=== PATIENT | female | born 1985 | race Caucasian/White ===

== ENCOUNTER 2016-10-26 10:53 | Emergency (ER) | payer OTHER ==
--- NOTE | 2016-10-26 11:48 | REP ---
Clinical: Chest pain . Comparison: None . Technique: PA and lateral. Findings: The mediastinum and cardiac silhouette are normal. The lung moran are clear and without acute consolidation, effusion, or pneumothorax. The skeletal structures are intact and normal. Impression: 1. No acute cardiopulmonary process. Signed by Jayy Leblanc MD 10/26/2016 11:39 A
[2016-10-26 12:59] LABS: BASO # 0.1 K/mm3 (0.0-0.2); BASO % 1.2 % (0.0-1.0); EOS # 0.1 K/mm3 (0.0-0.50); EOS % 1.7 % (0.0-3.0); LARGE UNSTAINED CELL # 0.1 K/mm3 (0.0-0.4); LARGE UNSTAINED CELL % 2.1 % (0.0-4.0); LYMPH # 2.4 K/mm3 (1.5-4.5); LYMPH % 34.6 % (24.0-44.0); MEAN CORPUSCULAR HEMOGLOBIN 31.4 pg (27.0-33.0); MEAN CORPUSCULAR HGB CONC 34.7 g/dl (32.0-36.5); MEAN CORPUSCULAR VOLUME 90.4 fl (80.0-96.0); MONO # 0.4 K/mm3 (0.0-0.8); MONO % 5.4 % (0.0-5.0); NEUTROPHILS # 3.6 K/mm3 (1.8-7.7); NEUTROPHILS % 54.9 % (36.0-66.0); PLATELET COUNT, AUTOMATED 239 k/mm3 (150-450); RED CELL DISTRIBUTION WIDTH 12.3 % (11.5-14.5); WHITE BLOOD COUNT 6.6 K/mm3 (4.0-10.0)
[2016-10-26 13:00] LABS: ABG BASE EXCESS 0.8 (-2.0-2.0); ABG DEVICE NASAL CANN; ABG HCO3 22.9 MEQ/L (22.0-26.0); ABG PARTIAL PRESSURE CO2 29.6 mmHg (35.0-45.0); ABG PARTIAL PRESSURE O2 122.9 mmHg (75.0-100.0); ABG STANDARD HCO3 25.2 MEQ/L (22.0-26.0); ABG TOTAL CO2 23.8 MEQ/L (22.0-29.0); ABG pH (ARTERIAL) 7.506 UNITS (7.350-7.450)
[2016-10-26 13:14] LABS: INR 1.12
[2016-10-26 13:25] LABS: ANION GAP 5 MEQ/L (8-16); BLOOD UREA NITROGEN 8 MG/DL (7-18); CALCIUM LEVEL 9.1 MG/DL (8.5-10.1); CARBON DIOXIDE LEVEL 29 MEQ/L (21-32); CHLORIDE LEVEL 108 MEQ/L (98-107); CREATININE FOR GFR 0.73 MG/DL (0.55-1.02); GLOMERULAR FILTRATION RATE > 60.0 (>60); GLUCOSE, FASTING 90 MG/DL (70-105); SODIUM LEVEL 142 MEQ/L (136-145)
[2016-10-26 13:53] LABS: CONTROL LINE HCG INT CTR LINE PRESENT
[2016-10-26] MEDS ORDERED: ISOVUE-370 76% 100ML VIAL (Q9967) As Ordered ONE (14:03)
--- NOTE | 2016-10-26 14:27 | REP ---
Clinical: Acute chest pain. Technique: Axial contrast enhanced images from the thoracic inlet to the upper abdomen using 100 ml Isovue 370 intravenous contrast material with coronal and sagittal re-formations. Findings: Satisfactory enhancement of the pulmonary vasculature is achieved and no filling defects are identified to suggest pulmonary embolus. Thoracic aorta is normal caliber without aneurysm or dissection. Heart and pericardium are normal. Bilateral lung moran are well aerated and clear without acute pulmonary parenchymal consolidation or atelectasis. No nodule or mass lesion. No pleural effusion/reaction. No pneumothorax. No adenopathy. Impression: No evidence for pulmonary embolus. No acute pleuroparenchymal or mediastinal process. Signed by Jayy Leblanc MD 10/26/2016 02:17 P
[2016-10-26] MEDS ORDERED: KETOROLAC 30 MG/ML VIAL (J1885) As Ordered ONE (14:46)
--- NOTE | 2016-10-26 15:06 | EDDOCDS ---
Physician Documentation [facility] Name: Susanne Weathers Age: 31 yrs Sex: Female : 1985 Arrival Date: 10/26/2016 Time: 10:53 Bed 11 Private MD: Stephan - Complete Info On Cds Disposition: 10/26/16 14:37 Discharged to Home/Self Care. Impression: Strain of muscle and tendon of front wall of thorax. - Condition is Stable. - Prescriptions for ketorolac 10 mg Oral Tablet - take 1 tablet by ORAL route 3 times per day As needed MDD- 30mg. Up to 5 days total use.; 15 tablet. - Medication Reconciliation, Local Pharmacy Hours form. - Follow up: Private Physician; When: Call to arrange an appointment; Reason: Recheck today's complaints. - Problem is new. - Symptoms have improved. Historical: - Allergies: no known allergies; - Home Meds: 1. none - PMHx: none; - PSHx: D & C; - Social history: Smoking status: Patient states former smoker of tobacco. No barriers to communication noted, The patient speaks fluent Malay, Speaks appropriately for age. - Family history: Not pertinent. - : The pt / caregiver states he / she is not on anticoagulants. Home medication list is obtained from the patient. - Exposure Risk Screening:: None identified. 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 7 in. (170.18 cm) (R); Pain 5/10; 11:13 BP 113 / 72 (auto/); kc3 11:13 Pulse 70 MON; Pulse Ox 97% ; kc3 11:43 BP 107 / 71 (auto/); kc3 11:43 Pulse 64 MON; Pulse Ox 98% ; kc3 12:12 Pulse 62 MON; Pulse Ox 98% ; kc3 12:13 BP 103 / 74 (auto/); kc3 12:37 BP 104 / 66 (auto/); kc3 12:39 Pulse 62 MON; Pulse Ox 99% ; kc3 13:06 Pulse 60 MON; Pulse Ox 98% ; kc3 13:07 BP 108 / 70 (auto/); kc3 13:37 BP 103 / 63 (auto/); kc3 13:37 Pulse 68 MON; Resp 18; Temp 97.4(O); Pulse Ox 98% on R/A; Pain 2/10; kc3 15:03 BP 105 / 70; Pulse 60; Resp 18; Temp 97.6(O); Pulse Ox 99% on R/A; kc3 15:03 Pain 1/10; kc3 10:56 Body Mass Index 28.19 (81.65 kg, 170.18 cm) gr2 MDM: 10:59 ECG WITH READING ER PHYS+CARDIAG ordered. EDMS 11:08 Test Engineer Nuclear Equipment/Pulse Ox/q 30 min VS ordered. br1 11:09 Chest, 2 View (pa\E\lat) Ordered. EDMS 12:40 Call Respiratory ordered. cs11 12:41 -Arterial Blood Gas Ordered. EDMS 12:41 CBC with Diff Ordered. EDMS 12:41 MED Profile Ordered. EDMS 12:41 Cardiac Marker Panel Ordered. EDMS 12:41 Pt & Aptt Ordered. EDMS 12:42 Call Respiratory complete. jlf 12:47 Financial registration complete. mm15 12:51 [facility] Payment Agreement was scanned into [employer] and attached to record. mm15 13:35 -Arterial Blood Gas Reviewed. cs11 13:35 CBC with Diff Reviewed. cs11 13:35 MED Profile Reviewed. cs11 13:35 Cardiac Marker Panel Reviewed. cs11 13:35 Pt & Aptt Reviewed. cs11 13:35 Chest, 2 View (pa\E\lat) Reviewed. cs11 13:41 HCG,Serum Qualitative Ordered. EDMS 13:41 CT Chest Angio R/O PE Ordered. EDMS 14:40 ketorolac 30 mg IVP once ordered. cs11 Administered Medications: 14:49 Drug: ketorolac 30 mg [ketorolac 30 mg/mL (1 mL) injection solution (1 mL)] Route: IVP; kc3 Site: left antecubital; 15:03 Follow up: Pain 10/27 Adult kc3 Signatures: Dispatcher [employer] EDMS Magdaleno Whitehead MD MD br1 Alan Sidhu DO DO cs11 [employer] mm15 Deanna Ferrari, INDUSTRIAL MAINTENANCE TECHNICIAN INDUSTRIAL MAINTENANCE TECHNICIAN jlf Codi Castañeda,RN RN Tonie Duke,RN RN kc3 The chart was reviewed and I authenticate all verbal orders and agree with the evaluation and treatment provided.Attachments: 12:51 [facility] Payment Agreement mm15 MTDD
--- NOTE | 2016-10-26 15:06 | EDDOCDS ---
Nurse's Notes [facility] Name: Susanne Weathers Age: 31 yrs Sex: Female : 1985 Arrival Date: 10/26/2016 Time: 10:53 Bed 11 Private MD: Other - Complete Info On Cds Diagnosis: Strain of muscle and tendon of front wall of thorax Presentation: 10/26 10:59 Presenting complaint: Patient states: woke up yesterday morning with chest pain. denies ead sob. reports intermittent dizziness. denies n/v. reports chest pain is constant. Aspirin was not taken prior to arrival. Adult Sepsis Screening: The patient does not have new or worsening altered mentation. Patient's respiratory rate is less than 22. Systolic blood pressure is greater than 100. Patient has a qSOFA score of 0- Negative Sepsis Screen. Suicide/Homicide risk assessment- the patient denies having any suicidal and/or homicidal ideations and does not present with any other emotional, behavioral or mental health complaints. Status: The patient is a dependent. Transition of care: patient was not received from another setting of care. 10:59 Acuity: MORENO Level 3 ead 10:59 Method Of Arrival: Walkin/Carried/Asstd ead Triage Assessment: 11:00 General: Appears in no apparent distress, comfortable, Behavior is appropriate for age, ead cooperative. Pain: Location: chest Pain currently is 2 out of 10 on a pain scale. At worst was 6 out of 10 on a pain scale. Neurological: Level of Consciousness is awake, alert, Oriented to person, place, time, Reports dizziness. Cardiovascular: Chest pain is described as mild, radiates Does not radiate. episodes are continuous began yesterday morning. Respiratory: Airway is patent Respiratory effort is even, unlabored, Denies shortness of breath. GI: Denies nausea, vomiting. Derm: Skin is pink, warm & dry. 11:03 Pt Declines HIV testing. 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 none - PMHx: none; - PSHx: D & C; - Social history: Smoking status: Patient states former smoker of tobacco. No barriers to communication noted, The patient speaks fluent Uruguayan, Speaks appropriately for age. - Family history: Not pertinent. - : The pt / caregiver states he / she is not on anticoagulants. Home medication list is obtained from the patient. - Exposure Risk Screening:: None identified. Screenin:15 Screening information is obtained from the patient. Fall risk: No risks identified. kc3 Assistance ADL's: requires no assistance with activities of daily living. Abuse/DV Screen: The patient / caregiver reports he/she is: not in a situation that causes fear, pain or injury. Nutritional screening: No deficits noted. Advance Directives: Currently, there is no health care proxy. home support is adequate. Assessment: 11:13 General: Appears in no apparent distress, comfortable, Behavior is appropriate for age, kc3 cooperative. Pain: Location: chest Pain currently is 4 out of 10 on a pain scale. Neurological: Level of Consciousness is awake, alert, obeys commands, Oriented to person, place, time. Cardiovascular: Rhythm is sinus rhythm Chest pain is described as Pain is 4 out of 10 on a pain scale. quality is squeezing, is located in right radiates Does not radiate. began yesterday morning. Respiratory: Respiratory effort is even, unlabored, Respiratory pattern is regular, symmetrical, Denies shortness of breath. GI: Denies nausea, vomiting. Derm: Skin is pink, warm & dry. Musculoskeletal: Circulation, motion, and sensation intact. 11:42 General: Appears in no apparent distress, comfortable, Behavior is appropriate for age, kc3 cooperative. Pain: Location: chest Pain currently is 4 out of 10 on a pain scale. Neurological: Level of Consciousness is awake, alert, obeys commands, Oriented to person, place, time. Cardiovascular: Rhythm is sinus rhythm. Respiratory: Respiratory effort is even, unlabored, Respiratory pattern is regular, symmetrical. Derm: Skin is pink, warm & dry. 12:35 General: Appears in no apparent distress, comfortable, Behavior is appropriate for age, kc3 cooperative. Pain: Location: chest. Neurological: Level of Consciousness is awake, alert, obeys commands, Oriented to person, place, time. Cardiovascular: Rhythm is sinus rhythm. Respiratory: Respiratory effort is even, unlabored. Derm: Skin is pink, warm & dry. Musculoskeletal: Circulation, motion, and sensation intact. 12:59 Adult Sepsis Screening: The patient does not have new or worsening altered mentation. kc3 Patient's respiratory rate is less than 22. Systolic blood pressure is greater than 100. Patient has a qSOFA score of 0- Negative Sepsis Screen. 13:49 General: Appears in no apparent distress, comfortable, Behavior is appropriate for age, kc3 cooperative. Pain: Location: chest. Neurological: Level of Consciousness is awake, alert, obeys commands. Cardiovascular: Rhythm is sinus rhythm. Respiratory: Respiratory effort is even, unlabored. Derm: Skin is pink, warm & dry. 14:30 General: Appears in no apparent distress, comfortable, Behavior is appropriate for age, kc3 cooperative. Pain: Location: chest. Neurological: Level of Consciousness is awake, alert, obeys commands, Oriented to person, place, time. Cardiovascular: Rhythm is sinus rhythm. Respiratory: Respiratory effort is even, unlabored. Derm: Skin is pink, warm & dry. Musculoskeletal: Circulation, motion, and sensation intact. 15:02 General: Appears in no apparent distress, comfortable, Behavior is appropriate for age, kc3 cooperative. Pain: Location: chest. Neurological: Level of Consciousness is awake, alert, obeys commands, Oriented to person, place, time. Cardiovascular: Rhythm is sinus rhythm. Respiratory: Respiratory effort is even, unlabored. Derm: Skin is pink, warm & dry. Musculoskeletal: Circulation, motion, and sensation intact. Vital Signs: 10:56 BP 126 / 76; Pulse 76; Resp 18 S; Temp 96.9(O); Pulse Ox 98% on R/A; Weight 81.65 kg gr2 (R); Height 5 ft. 7 in. (170.18 cm) (R); Pain 5/10; 11:13 BP 113 / 72 (auto/); kc3 11:13 Pulse 70 MON; Pulse Ox 97% ; kc3 11:43 BP 107 / 71 (auto/); kc3 11:43 Pulse 64 MON; Pulse Ox 98% ; kc3 12:12 Pulse 62 MON; Pulse Ox 98% ; kc3 12:13 BP 103 / 74 (auto/); kc3 12:37 BP 104 / 66 (auto/); kc3 12:39 Pulse 62 MON; Pulse Ox 99% ; kc3 13:06 Pulse 60 MON; Pulse Ox 98% ; kc3 13:07 BP 108 / 70 (auto/); kc3 13:37 BP 103 / 63 (auto/); kc3 13:37 Pulse 68 MON; Resp 18; Temp 97.4(O); Pulse Ox 98% on R/A; Pain 2/10; kc3 15:03 BP 105 / 70; Pulse 60; Resp 18; Temp 97.6(O); Pulse Ox 99% on R/A; kc3 15:03 Pain 1/10; kc3 10:56 Body Mass Index 28.19 (81.65 kg, 170.18 cm) gr2 Vitals: 10:56 Log In Time: October 26, 2016 at 10:56. RN notified that patient meets Red Flag gr2 criteria. ED Course: 10:54 Patient visited by Robson Richmond. gr2 10:54 Patient moved to Waiting gr2 10:55 Other - Complete Info On Cds is Private Physician. gr2 10:57 Patient visited by Robson Richmond. gr2 10:57 Patient moved to Pre RCE gr2 10:58 Patient moved to PR2 / 26 ead 11:00 Triage Initiated ead 11:04 Patient visited by Lizett Lima. dem1 11:04 EKG done. (by ED staff). Reviewed by Magdaleno Whitehead MD. dem1 11:07 Tonie Cantu,RN is Primary Nurse. ead 11:07 Patient moved to 11 ead 11:14 Accompanied by Family Member, Patient has correct armband on for positive ct3 identification. Placed in gown. Bed in low position. Call light in reach. Side rails up X2. hospital monitor on. Pulse ox on. NIBP on. 11:15 Patient visited by Tonie Cantu RN. kc3 11:15 The patient / caregiver is instructed regarding the plan of care and ED course. kc3 11:44 Patient visited by Tonie Cantu RN. kc3 11:49 Chest, 2 View (pa\E\lat) Returned. EDMS 12:15 Alan Sidhu DO is Attending Physician. cs11 12:15 Patient visited by Alan Sidhu DO. cs11 12:51 [facility] Payment Agreement was scanned into [employer] and attached to record. mm15 12:52 Pt & Aptt Sent. jjr 12:52 Cardiac Marker Panel Sent. jjr 12:52 MED Profile Sent. jjr 12:52 CBC with Diff Sent. jjr 12:52 Inserted saline lock: 20 gauge in left antecubital area and blood collected. Labs jjr drawn. (by ED staff). Sent per order to lab. 12:56 -Arterial Blood Gas Sent. js11 13:03 Patient visited by Deanna Ferrari PCA. jlf 13:29 Patient name changed from Susanne\S\[place]\S\ to Susanne\S\[place]loria\S\[place]. EDMS 13:44 HCG,Serum Qualitative Sent. kc3 13:50 Patient visited by Tonie Cantu,RN. kc3 14:17 Patient visited by Tonie Cantu,FARIHA. kc3 14:33 CT Chest Angio R/O PE Returned. EDMS 15:03 Discontinued IV lock intact, bleeding controlled, pressure dressing applied, No kc3 redness/swelling at site. No procedures done that require assistance. Administered Medications: 14:49 Drug: ketorolac 30 mg [ketorolac 30 mg/mL (1 mL) injection solution (1 mL)] Route: IVP; kc3 Site: left antecubital; 15:03 Follow up: Pain 10/27 Adult kc3 RT: 12:56 ABG's drawn from left radial artery allens test done and positive pressure held for 5 js11 minutes no bleeding noted specimen sent pt. tolerated well. Order Results: Lab Order: -Arterial Blood Gas; SPEC'M 10/26/16 12:49 Test: ABG pH (ARTERIAL); Value: 7.506; Range: 7.350-7.450; Abnormal: Above high normal; Units: UNITS; Status: F Test: ABG PARTIAL PRESSURE CO2; Value: 29.6; Range: 35.0-45.0; Abnormal: Below low normal; Units: mmHg; Status: F Test: ABG PARTIAL PRESSURE O2; Value: 122.9; Range: 75.0-100.0; Abnormal: Above high normal; Units: mmHg; Status: F Test: ABG TOTAL CO2; Value: 23.8; Range: 22.0-29.0; Units: MEQ/L; Status: F Test: ABG HCO3; Value: 22.9; Range: 22.0-26.0; Units: MEQ/L; Status: F Test: ABG BASE EXCESS; Value: 0.8; Range: -2.0-2.0; Status: F Test: ABG STANDARD HCO3; Value: 25.2; Range: 22.0-26.0; Units: MEQ/L; Status: F Test: ABG O2 SATURATION; Value: 98.9; Range: 95.0-99.0; Units: %; Status: F Test: ABG DEVICE; Value: NASAL EDOUARD; Status: F Lab Order: CBC with Diff; SPEC'M 10/26/16 12:50 Test: WHITE BLOOD COUNT; Value: 6.6; Range: 4.0-10.0; Units: K/mm3; Status: F Test: RED BLOOD COUNT; Value: 4.35; Range: 4.00-5.40; Units: M/mm3; Status: F Test: HEMOGLOBIN; Value: 13.7; Range: 12.0-16.0; Units: g/dl; Status: F Test: HEMATOCRIT; Value: 39.4; Range: 36.0-47.0; Units: %; Status: F Test: MEAN CORPUSCULAR VOLUME; Value: 90.4; Range: 80.0-96.0; Units: fl; Status: F Test: MEAN CORPUSCULAR HEMOGLOBIN; Value: 31.4; Range: 27.0-33.0; Units: pg; Status: F Test: MEAN CORPUSCULAR HGB CONC; Value: 34.7; Range: 32.0-36.5; Units: g/dl; Status: F Test: RED CELL DISTRIBUTION WIDTH; Value: 12.3; Range: 11.5-14.5; Units: %; Status: F Test: PLATELET COUNT, AUTOMATED; Value: 239; Range: 150-450; Units: k/mm3; Status: F Test: NEUTROPHILS %; Value: 54.9; Range: 36.0-66.0; Units: %; Status: F Test: LYMPH %; Value: 34.6; Range: 24.0-44.0; Units: %; Status: F Test: MONO %; Value: 5.4; Range: 0.0-5.0; Abnormal: Above high normal; Units: %; Status: F Test: EOS %; Value: 1.7; Range: 0.0-3.0; Units: %; Status: F Test: BASO %; Value: 1.2; Range: 0.0-1.0; Abnormal: Above high normal; Units: %; Status: F Test: LARGE UNSTAINED CELL %; Value: 2.1; Range: 0.0-4.0; Units: %; Status: F Test: NEUTROPHILS #; Value: 3.6; Range: 1.8-7.7; Units: K/mm3; Status: F Test: LYMPH #; Value: 2.4; Range: 1.5-4.5; Units: K/mm3; Status: F Test: MONO #; Value: 0.4; Range: 0.0-0.8; Units: K/mm3; Status: F Test: EOS #; Value: 0.1; Range: 0.0-0.50; Units: K/mm3; Status: F Test: BASO #; Value: 0.1; Range: 0.0-0.2; Units: K/mm3; Status: F Test: LARGE UNSTAINED CELL #; Value: 0.1; Range: 0.0-0.4; Units: K/mm3; Status: F Lab Order: MED Profile; SPEC'M 10/26/16 12:50 Test: GLUCOSE, FASTING; Value: 90; Range: 70-105; Units: MG/DL; Status: F Test: BLOOD UREA NITROGEN; Value: 8; Range: 7-18; Units: MG/DL; Status: F Test: CREATININE FOR GFR; Value: 0.73; Range: 0.55-1.02; Units: MG/DL; Status: F Test: GLOMERULAR FILTRATION RATE; Value: > 60.0; Range: >60; Status: F Test: SODIUM LEVEL; Value: 142; Range: 136-145; Units: MEQ/L; Status: F Test: POTASSIUM SERUM; Value: 4.0; Range: 3.5-5.1; Units: MEQ/L; Status: F Test: CHLORIDE LEVEL; Value: 108; Range: 98-107; Abnormal: Above high normal; Units: MEQ/L; Status: F Test: CARBON DIOXIDE LEVEL; Value: 29; Range: 21-32; Units: MEQ/L; Status: F Test: ANION GAP; Value: 5; Range: 8-16; Abnormal: Below low normal; Units: MEQ/L; Status: F Test: CALCIUM LEVEL; Value: 9.1; Range: 8.5-10.1; Units: MG/DL; Status: F Test Note: ; Units are mL/min/1.73 m2 Chronic Kidney Disease Staging per NKF: Stage I & II GFR >=60 Normal to Mildly Decreased Stage III GFR 30-59 Moderately Decreased Stage IV GFR 15-29 Severely Decreased Stage V GFR <15 Very Little GFR Left ESRD GFR <15 on CONVENTION WORKER Lab Order: Cardiac Marker Panel; [facility]10/26/16 12:50 Test: CPK CREATINE PHOSPHOKINASE; Value: 37; Range: 26-192; Units: U/L; Status: F Test: CK-MB VALUE MASS; Value: 1.0; Range: 0.0-3.6; Units: NG/ML; Status: F Test: MB/CK RELATIVE INDEX; Value: 2.70; Range: < OR =4; Status: F Test: TROPONIN I; Value: < 0.02; Range: < 0.10; Units: NG/ML; Status: F Test Note: ; DIAGNOSIS CRITERIA MMB ng/ml Relative Index (RI) NON-AMI < or = 5 N/A ZELAYA ZONE > 5 < or = 4 AMI > 5 > 4 Lab Order: Pt & Aptt; 10/26/16 12:50 Test: PROTHROMBIN TIME; Value: 14.5; Range: 12.3-14.5; Units: SECONDS; Status: F Test: INR; Value: 1.12; Status: F Test: PARTIAL THROMBOPLASTIN TIME; Value: 32.2; Range: 26.6-37.1; Units: SECONDS; Status: F Test Note: ; THERAPUTIC HUMAN INR VALUES INDICATIONS NORMAL RANGES PROPHYLAXIS/TREATMENT OF: VENOUS THROMBOSIS 2.0-3.0 PULMONARY EMBOLISM 2.0-3.0 PREVENTION OF SYSTEMIC EMBOLISM FROM: TISSUE HEART VALVES 2.0-3.0 ACUTE MYOCARDIAL INFARCTION 2.0-3.0 VALVULAR HEART DISEASE 2.0-3.0 ATRIAL FIBRILLATION 2.0-3.0 MECHANICAL VALVES(HIGH RISK) 2.5-3.5 RECURRENT MYOCARDIAL INFARCTION 2.5-3.5 Lab Order: HCG,Serum Qualitative; 10/26/16 12:50 Test: HCG, SERUM QUALITATIVE; Value: NEGATIVE; Range: NEGATIVE; Status: F Radiology Order: Chest, 2 View (pa\E\lat) Test: Chest, 2 View (pa\E\lat) REASON FOR EXAMINATION: Chest Pain; Clinical: Chest pain .; ; Comparison: None .; ; Technique: PA and lateral.; ; Findings:; The mediastinum and cardiac silhouette are normal. The lung moran are clear and; without acute consolidation, effusion, or pneumothorax. The skeletal structures; are intact and normal.; ; Impression:; 1. No acute cardiopulmonary process.; ; ; Signed by; Jayy Leblanc MD 10/26/2016 11:39 A; Radiology Order: CT Chest Angio R/O PE Test: CT Chest Angio R/O PE REASON FOR EXAMINATION: A-a grad 12;Chest Pain; Clinical: Acute chest pain.; ; Technique: Axial contrast enhanced images from the thoracic inlet to the upper; abdomen using 100 ml Isovue 370 intravenous contrast material with coronal and; sagittal re-formations.; ; Findings: Satisfactory enhancement of the pulmonary vasculature is achieved and; no filling defects are identified to suggest pulmonary embolus. Thoracic aorta; is normal caliber without aneurysm or dissection. Heart and pericardium are; normal. Bilateral lung moran are well aerated and clear without acute pulmonary; parenchymal consolidation or atelectasis. No nodule or mass lesion. No pleural; effusion/reaction. No pneumothorax. No adenopathy.; ; Impression:; No evidence for pulmonary embolus.; No acute pleuroparenchymal or mediastinal process.; ; ; Signed by; Jayy Leblanc MD 10/26/2016 02:17 P; Outcome: 14:17 CT Study completed. kc3 14:37 Discharge ordered by Provider. cs11 15:04 Discharge Assessment: Patient awake, alert and oriented x 3. No cognitive and/or kc3 functional deficits noted. Patient verbalized understanding of disposition instructions. patient administered narcotics - no. The following High Risk Discharge criteria are identified: None. Condition: stable. Discharge instructions given to patient, Instructed on discharge instructions, follow up and referral plans. medication usage, Demonstrated understanding of instructions, medications, Pt was receptive of discharge instructions/ teaching. Prescriptions given X 1. Property :Personal belongings accompany Pt. 15:05 Patient left the ED. kc3 Signatures: Dispatcher [facility] Sabrina Arauz, RN RN Briana Meraz, DRAFTER DRAFTER ct3 Ángel Best js11 Lizett Lima dem1 Alan Sidhu, DO JUÁREZ cs11 Robson Richmond gr2 [employer] Crisostomo mm15 Vonda Roxannaronald, DRAFTER DRAFTER jlf Codi Castañeda RN RN ead Crane, Kelsi, RN RN kc3 Corrections: (The following items were deleted from the chart) 14:03 13:37 Pulse 68bpm; Monitor; Pulse Ox 98%; kc3 kc3 MTDD
--- NOTE | 2016-10-27 19:47 | ECGEPIP ---
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
--- NOTE | 2016-10-28 16:06 | EDDOCDS ---
Physician Documentation [facility] Name: Susanne Weathers Age: 31 yrs Sex: Female : 1985 Arrival Date: 10/26/2016 Time: 10:53 Bed 11 Private MD: Stephan - Complete Info On Cds Disposition: 10/26/16 14:37 Discharged to Home/Self Care. Impression: Strain of muscle and tendon of front wall of thorax. - Condition is Stable. - Prescriptions for ketorolac 10 mg Oral Tablet - take 1 tablet by ORAL route 3 times per day As needed MDD- 30mg. Up to 5 days total use.; 15 tablet. - Medication Reconciliation, Local Pharmacy Hours form. - Follow up: Private Physician; When: Call to arrange an appointment; Reason: Recheck today's complaints. - Problem is new. - Symptoms have improved. Historical: - Allergies: no known allergies; - Home Meds: 1. none - PMHx: none; - PSHx: D & C; - Social history: Smoking status: Patient states former smoker of tobacco. No barriers to communication noted, The patient speaks fluent Frisian, Speaks appropriately for age. - Family history: Not pertinent. - : The pt / caregiver states he / she is not on anticoagulants. Home medication list is obtained from the patient. - Exposure Risk Screening:: None identified. TAX ACCOUNTANT: 10/26 11:02 LMP 09/26/2016 ead Vital Signs: 10:56 BP 126 / 76; Pulse 76; Resp 18 S; Temp 96.9(O); Pulse Ox 98% on R/A; Weight 81.65 kg / gr2 180.01 lbs (R); Height 5 ft. 7 in. (170.18 cm) (R); Pain 5/10; 11:13 BP 113 / 72 (auto/); kc3 11:13 Pulse 70 MON; Pulse Ox 97% ; kc3 11:43 BP 107 / 71 (auto/); kc3 11:43 Pulse 64 MON; Pulse Ox 98% ; kc3 12:12 Pulse 62 MON; Pulse Ox 98% ; kc3 12:13 BP 103 / 74 (auto/); kc3 12:37 BP 104 / 66 (auto/); kc3 12:39 Pulse 62 MON; Pulse Ox 99% ; kc3 13:06 Pulse 60 MON; Pulse Ox 98% ; kc3 13:07 BP 108 / 70 (auto/); kc3 13:37 BP 103 / 63 (auto/); kc3 13:37 Pulse 68 MON; Resp 18; Temp 97.4(O); Pulse Ox 98% on R/A; Pain 2/10; kc3 15:03 BP 105 / 70; Pulse 60; Resp 18; Temp 97.6(O); Pulse Ox 99% on R/A; kc3 15:03 Pain 1/10; kc3 10:56 Body Mass Index 28.19 (81.65 kg, 170.18 cm) gr2 MDM: 10:59 ECG WITH READING ER PHYS+CARDIAG ordered. EDMS 11:08 Door Attendant/Pulse Ox/q 30 min VS ordered. br1 11:09 Chest, 2 View (pa\E\lat) Ordered. EDMS 12:40 Call Respiratory ordered. cs11 12:41 -Arterial Blood Gas Ordered. EDMS 12:41 CBC with Diff Ordered. EDMS 12:41 MED Profile Ordered. EDMS 12:41 Cardiac Marker Panel Ordered. EDMS 12:41 Pt & Aptt Ordered. EDMS 12:42 Call Respiratory complete. jlf 12:47 Financial registration complete. mm15 12:51 [facility] Payment Agreement was scanned into [employer] and attached to record. mm15 13:35 -Arterial Blood Gas Reviewed. cs11 13:35 CBC with Diff Reviewed. cs11 13:35 MED Profile Reviewed. cs11 13:35 Cardiac Marker Panel Reviewed. cs11 13:35 Pt & Aptt Reviewed. cs11 13:35 Chest, 2 View (pa\E\lat) Reviewed. cs11 13:41 HCG,Serum Qualitative Ordered. EDMS 13:41 CT Chest Angio R/O PE Ordered. EDMS 14:40 ketorolac 30 mg IVP once ordered. cs11 10/27 11:59 T-Sheet-- Draft Copy was scanned into [employer] and attached to record. gb 12:00 ECG/EKG was scanned into [employer] and attached to record. gb Administered Medications: 10/26 14:49 Drug: ketorolac 30 mg [ketorolac 30 mg/mL (1 mL) injection solution (1 mL)] Route: IVP; kc3 Site: left antecubital; 15:03 Follow up: Pain 10/27 Adult kc3 Signatures: Dispatcher [employer] EDMS April Portillo, Reg Reg gb Magdaleno Whitehead MD MD br1 Alan Sidhu DO DO cs11 [employer] mm15 Deanna Ferrari, HOSPICE EXECUTIVE DIRECTOR HOSPICE EXECUTIVE DIRECTOR jlf Codi Castañeda,RN RN ead Tonie Cantu RN RN kc3 The chart was reviewed and I authenticate all verbal orders and agree with the evaluation and treatment provided.Attachments: 12:51 [facility] [place] Payment Agreement mm15 10/27 11:59 T-Sheet-- Draft Copy gb 12:00 ECG/EKG gb Chart Complete MTDD
--- NOTE | 2016-10-28 16:06 | EDDOCDS ---
Physician Documentation [facility] Name: Susanne Weathers Age: 31 yrs Sex: Female : 1985 Arrival Date: 10/26/2016 Time: 10:53 Bed 11 Private MD: Stephan - Complete Info On Cds Disposition: 10/26/16 14:37 Discharged to Home/Self Care. Impression: Strain of muscle and tendon of front wall of thorax. - Condition is Stable. - Prescriptions for ketorolac 10 mg Oral Tablet - take 1 tablet by ORAL route 3 times per day As needed MDD- 30mg. Up to 5 days total use.; 15 tablet. - Medication Reconciliation, Local Pharmacy Hours form. - Follow up: Private Physician; When: Call to arrange an appointment; Reason: Recheck today's complaints. - Problem is new. - Symptoms have improved. Historical: - Allergies: no known allergies; - Home Meds: 1. none - PMHx: none; - PSHx: D & C; - Social history: Smoking status: Patient states former smoker of tobacco. No barriers to communication noted, The patient speaks fluent Nepali, Speaks appropriately for age. - Family history: Not pertinent. - : The pt / caregiver states he / she is not on anticoagulants. Home medication list is obtained from the patient. - Exposure Risk Screening:: None identified. IRRIGATOR GRAVITY FLOW: 10/26 11:02 LMP 09/26/2016 ead Vital Signs: 10:56 BP 126 / 76; Pulse 76; Resp 18 S; Temp 96.9(O); Pulse Ox 98% on R/A; Weight 81.65 kg / gr2 180.01 lbs (R); Height 5 ft. 7 in. (170.18 cm) (R); Pain 5/10; 11:13 BP 113 / 72 (auto/); kc3 11:13 Pulse 70 MON; Pulse Ox 97% ; kc3 11:43 BP 107 / 71 (auto/); kc3 11:43 Pulse 64 MON; Pulse Ox 98% ; kc3 12:12 Pulse 62 MON; Pulse Ox 98% ; kc3 12:13 BP 103 / 74 (auto/); kc3 12:37 BP 104 / 66 (auto/); kc3 12:39 Pulse 62 MON; Pulse Ox 99% ; kc3 13:06 Pulse 60 MON; Pulse Ox 98% ; kc3 13:07 BP 108 / 70 (auto/); kc3 13:37 BP 103 / 63 (auto/); kc3 13:37 Pulse 68 MON; Resp 18; Temp 97.4(O); Pulse Ox 98% on R/A; Pain 2/10; kc3 15:03 BP 105 / 70; Pulse 60; Resp 18; Temp 97.6(O); Pulse Ox 99% on R/A; kc3 15:03 Pain 1/10; kc3 10:56 Body Mass Index 28.19 (81.65 kg, 170.18 cm) gr2 MDM: 10:59 ECG WITH READING ER PHYS+CARDIAG ordered. EDMS 11:08 Spoon Maker/Pulse Ox/q 30 min VS ordered. br1 11:09 Chest, 2 View (pa\E\lat) Ordered. EDMS 12:40 Call Respiratory ordered. cs11 12:41 -Arterial Blood Gas Ordered. EDMS 12:41 CBC with Diff Ordered. EDMS 12:41 MED Profile Ordered. EDMS 12:41 Cardiac Marker Panel Ordered. EDMS 12:41 Pt & Aptt Ordered. EDMS 12:42 Call Respiratory complete. jlf 12:47 Financial registration complete. mm15 12:51 [facility] Payment Agreement was scanned into [employer] and attached to record. mm15 13:35 -Arterial Blood Gas Reviewed. cs11 13:35 CBC with Diff Reviewed. cs11 13:35 MED Profile Reviewed. cs11 13:35 Cardiac Marker Panel Reviewed. cs11 13:35 Pt & Aptt Reviewed. cs11 13:35 Chest, 2 View (pa\E\lat) Reviewed. cs11 13:41 HCG,Serum Qualitative Ordered. EDMS 13:41 CT Chest Angio R/O PE Ordered. EDMS 14:40 ketorolac 30 mg IVP once ordered. cs11 10/27 11:59 T-Sheet-- Draft Copy was scanned into [employer] and attached to record. gb 12:00 ECG/EKG was scanned into [employer] and attached to record. gb Administered Medications: 10/26 14:49 Drug: ketorolac 30 mg [ketorolac 30 mg/mL (1 mL) injection solution (1 mL)] Route: IVP; kc3 Site: left antecubital; 15:03 Follow up: Pain 10/27 Adult kc3 Signatures: Dispatcher [employer] EDMS April Portillo, Reg Reg gb Magdaleno Whitehead MD MD br1 Alan Sidhu DO DO cs11 [employer] mm15 Deanna Ferrari, ADMINISTRATIVE SECRETARY ADMINISTRATIVE SECRETARY jlf Codi Castañeda,RN RN ead Tonie Cantu RN RN kc3 The chart was reviewed and I authenticate all verbal orders and agree with the evaluation and treatment provided.Attachments: 12:51 [facility] [place] Payment Agreement mm15 10/27 11:59 T-Sheet-- Draft Copy gb 12:00 ECG/EKG gb Chart Complete MTDD
--- NOTE | 2016-10-28 16:06 | EDDOCDS ---
Nurse's Notes [facility] Name: Hebert Weathers Age: 31 yrs Sex: Female : 1985 Arrival Date: 10/26/2016 Time: 10:53 Bed 11 Private MD: Other - Complete Info On Cds Diagnosis: Strain of muscle and tendon of front wall of thorax Presentation: 10/26 10:59 Presenting complaint: Patient states: woke up yesterday morning with chest pain. denies ead sob. reports intermittent dizziness. denies n/v. reports chest pain is constant. Aspirin was not taken prior to arrival. Adult Sepsis Screening: The patient does not have new or worsening altered mentation. Patient's respiratory rate is less than 22. Systolic blood pressure is greater than 100. Patient has a qSOFA score of 0- Negative Sepsis Screen. Suicide/Homicide risk assessment- the patient denies having any suicidal and/or homicidal ideations and does not present with any other emotional, behavioral or mental health complaints. Status: The patient is a dependent. Transition of care: patient was not received from another setting of care. 10:59 Acuity: MORENO Level 3 ead 10:59 Method Of Arrival: Walkin/Carried/Asstd ead Triage Assessment: 11:00 General: Appears in no apparent distress, comfortable, Behavior is appropriate for age, ead cooperative. Pain: Location: chest Pain currently is 2 out of 10 on a pain scale. At worst was 6 out of 10 on a pain scale. Neurological: Level of Consciousness is awake, alert, Oriented to person, place, time, Reports dizziness. Cardiovascular: Chest pain is described as mild, radiates Does not radiate. episodes are continuous began yesterday morning. Respiratory: Airway is patent Respiratory effort is even, unlabored, Denies shortness of breath. GI: Denies nausea, vomiting. Derm: Skin is pink, warm & dry. 11:03 Pt Declines HIV testing. 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 none - PMHx: none; - PSHx: D & C; - Social history: Smoking status: Patient states former smoker of tobacco. No barriers to communication noted, The patient speaks fluent Yemeni, Speaks appropriately for age. - Family history: Not pertinent. - : The pt / caregiver states he / she is not on anticoagulants. Home medication list is obtained from the patient. - Exposure Risk Screening:: None identified. Screenin:15 Screening information is obtained from the patient. Fall risk: No risks identified. kc3 Assistance ADL's: requires no assistance with activities of daily living. Abuse/DV Screen: The patient / caregiver reports he/she is: not in a situation that causes fear, pain or injury. Nutritional screening: No deficits noted. Advance Directives: Currently, there is no health care proxy. home support is adequate. Assessment: 11:13 General: Appears in no apparent distress, comfortable, Behavior is appropriate for age, kc3 cooperative. Pain: Location: chest Pain currently is 4 out of 10 on a pain scale. Neurological: Level of Consciousness is awake, alert, obeys commands, Oriented to person, place, time. Cardiovascular: Rhythm is sinus rhythm Chest pain is described as Pain is 4 out of 10 on a pain scale. quality is squeezing, is located in right radiates Does not radiate. began yesterday morning. Respiratory: Respiratory effort is even, unlabored, Respiratory pattern is regular, symmetrical, Denies shortness of breath. GI: Denies nausea, vomiting. Derm: Skin is pink, warm & dry. Musculoskeletal: Circulation, motion, and sensation intact. 11:42 General: Appears in no apparent distress, comfortable, Behavior is appropriate for age, kc3 cooperative. Pain: Location: chest Pain currently is 4 out of 10 on a pain scale. Neurological: Level of Consciousness is awake, alert, obeys commands, Oriented to person, place, time. Cardiovascular: Rhythm is sinus rhythm. Respiratory: Respiratory effort is even, unlabored, Respiratory pattern is regular, symmetrical. Derm: Skin is pink, warm & dry. 12:35 General: Appears in no apparent distress, comfortable, Behavior is appropriate for age, kc3 cooperative. Pain: Location: chest. Neurological: Level of Consciousness is awake, alert, obeys commands, Oriented to person, place, time. Cardiovascular: Rhythm is sinus rhythm. Respiratory: Respiratory effort is even, unlabored. Derm: Skin is pink, warm & dry. Musculoskeletal: Circulation, motion, and sensation intact. 12:59 Adult Sepsis Screening: The patient does not have new or worsening altered mentation. kc3 Patient's respiratory rate is less than 22. Systolic blood pressure is greater than 100. Patient has a qSOFA score of 0- Negative Sepsis Screen. 13:49 General: Appears in no apparent distress, comfortable, Behavior is appropriate for age, kc3 cooperative. Pain: Location: chest. Neurological: Level of Consciousness is awake, alert, obeys commands. Cardiovascular: Rhythm is sinus rhythm. Respiratory: Respiratory effort is even, unlabored. Derm: Skin is pink, warm & dry. 14:30 General: Appears in no apparent distress, comfortable, Behavior is appropriate for age, kc3 cooperative. Pain: Location: chest. Neurological: Level of Consciousness is awake, alert, obeys commands, Oriented to person, place, time. Cardiovascular: Rhythm is sinus rhythm. Respiratory: Respiratory effort is even, unlabored. Derm: Skin is pink, warm & dry. Musculoskeletal: Circulation, motion, and sensation intact. 15:02 General: Appears in no apparent distress, comfortable, Behavior is appropriate for age, kc3 cooperative. Pain: Location: chest. Neurological: Level of Consciousness is awake, alert, obeys commands, Oriented to person, place, time. Cardiovascular: Rhythm is sinus rhythm. Respiratory: Respiratory effort is even, unlabored. Derm: Skin is pink, warm & dry. Musculoskeletal: Circulation, motion, and sensation intact. Vital Signs: 10:56 BP 126 / 76; Pulse 76; Resp 18 S; Temp 96.9(O); Pulse Ox 98% on R/A; Weight 81.65 kg gr2 (R); Height 5 ft. 7 in. (170.18 cm) (R); Pain 5/10; 11:13 BP 113 / 72 (auto/); kc3 11:13 Pulse 70 MON; Pulse Ox 97% ; kc3 11:43 BP 107 / 71 (auto/); kc3 11:43 Pulse 64 MON; Pulse Ox 98% ; kc3 12:12 Pulse 62 MON; Pulse Ox 98% ; kc3 12:13 BP 103 / 74 (auto/); kc3 12:37 BP 104 / 66 (auto/); kc3 12:39 Pulse 62 MON; Pulse Ox 99% ; kc3 13:06 Pulse 60 MON; Pulse Ox 98% ; kc3 13:07 BP 108 / 70 (auto/); kc3 13:37 BP 103 / 63 (auto/); kc3 13:37 Pulse 68 MON; Resp 18; Temp 97.4(O); Pulse Ox 98% on R/A; Pain 2/10; kc3 15:03 BP 105 / 70; Pulse 60; Resp 18; Temp 97.6(O); Pulse Ox 99% on R/A; kc3 15:03 Pain 1/10; kc3 10:56 Body Mass Index 28.19 (81.65 kg, 170.18 cm) gr2 Vitals: 10:56 Log In Time: October 26, 2016 at 10:56. RN notified that patient meets Red Flag gr2 criteria. ED Course: 10:54 Patient visited by Robson Richmond. gr2 10:54 Patient moved to Waiting gr2 10:55 Other - Complete Info On Cds is Private Physician. gr2 10:57 Patient visited by Robson Richmond. gr2 10:57 Patient moved to Pre RCE gr2 10:58 Patient moved to PR2 / 26 ead 11:00 Triage Initiated ead 11:04 Patient visited by Lizett Lima. dem1 11:04 EKG done. (by ED staff). Reviewed by Taj Whitehead MD. dem1 11:07 Tonie Cantu,RN is Primary Nurse. ead 11:07 Patient moved to 11 ead 11:14 Accompanied by Family Member, Patient has correct armband on for positive ct3 identification. Placed in gown. Bed in low position. Call light in reach. Side rails up X2. traffic monitor specialist on. Pulse ox on. NIBP on. 11:15 Patient visited by Tonie Cantu RN. kc3 11:15 The patient / caregiver is instructed regarding the plan of care and ED course. kc3 11:44 Patient visited by Tonie Cantu RN. kc3 11:49 Chest, 2 View (pa\E\lat) Returned. EDMS 12:15 Alan Sidhu DO is Attending Physician. cs11 12:15 Patient visited by Alan Sidhu DO. cs11 12:51 [facility] Payment Agreement was scanned into [employer] and attached to record. mm15 12:52 Pt & Aptt Sent. jjr 12:52 Cardiac Marker Panel Sent. jjr 12:52 MED Profile Sent. jjr 12:52 CBC with Diff Sent. jjr 12:52 Inserted saline lock: 20 gauge in left antecubital area and blood collected. Labs jjr drawn. (by ED staff). Sent per order to lab. 12:56 -Arterial Blood Gas Sent. js11 13:03 Patient visited by Deanna Ferrari PCA. jlf 13:29 Patient name changed from Hebert\S\M\S\[place]\S\ to Hebert\S\Gloria\S\[place]. EDMS 13:44 HCG,Serum Qualitative Sent. kc3 13:50 Patient visited by Tonie Cantu,RN. kc3 14:17 Patient visited by Tonie Cantu,FARIHA. kc3 14:33 CT Chest Angio R/O PE Returned. EDMS 15:03 Discontinued IV lock intact, bleeding controlled, pressure dressing applied, No kc3 redness/swelling at site. No procedures done that require assistance. 10/27 11:59 T-Sheet-- Draft Copy was scanned into [employer] and attached to record. gb 12:00 ECG/EKG was scanned into [employer] and attached to record. gb 20:25 EKG-ADULT Returned. EDMS Administered Medications: 10/26 14:49 Drug: ketorolac 30 mg [ketorolac 30 mg/mL (1 mL) injection solution (1 mL)] Route: IVP; kc3 Site: left antecubital; 15:03 Follow up: Pain 10/27 Adult kc3 RT: 12:56 ABG's drawn from left radial artery allens test done and positive pressure held for 5 js11 minutes no bleeding noted specimen sent pt. tolerated well. Order Results: Lab Order: -Arterial Blood Gas; SPEC'M 10/26/16 12:49 Test: ABG pH (ARTERIAL); Value: 7.506; Range: 7.350-7.450; Abnormal: Above high normal; Units: UNITS; Status: F Test: ABG PARTIAL PRESSURE CO2; Value: 29.6; Range: 35.0-45.0; Abnormal: Below low normal; Units: mmHg; Status: F Test: ABG PARTIAL PRESSURE O2; Value: 122.9; Range: 75.0-100.0; Abnormal: Above high normal; Units: mmHg; Status: F Test: ABG TOTAL CO2; Value: 23.8; Range: 22.0-29.0; Units: MEQ/L; Status: F Test: ABG HCO3; Value: 22.9; Range: 22.0-26.0; Units: MEQ/L; Status: F Test: ABG BASE EXCESS; Value: 0.8; Range: -2.0-2.0; Status: F Test: ABG STANDARD HCO3; Value: 25.2; Range: 22.0-26.0; Units: MEQ/L; Status: F Test: ABG O2 SATURATION; Value: 98.9; Range: 95.0-99.0; Units: %; Status: F Test: ABG DEVICE; Value: NASAL EDOUARD; Status: F Lab Order: CBC with Diff; SPEC'M 10/26/16 12:50 Test: WHITE BLOOD COUNT; Value: 6.6; Range: 4.0-10.0; Units: K/mm3; Status: F Test: RED BLOOD COUNT; Value: 4.35; Range: 4.00-5.40; Units: M/mm3; Status: F Test: HEMOGLOBIN; Value: 13.7; Range: 12.0-16.0; Units: g/dl; Status: F Test: HEMATOCRIT; Value: 39.4; Range: 36.0-47.0; Units: %; Status: F Test: MEAN CORPUSCULAR VOLUME; Value: 90.4; Range: 80.0-96.0; Units: fl; Status: F Test: MEAN CORPUSCULAR HEMOGLOBIN; Value: 31.4; Range: 27.0-33.0; Units: pg; Status: F Test: MEAN CORPUSCULAR HGB CONC; Value: 34.7; Range: 32.0-36.5; Units: g/dl; Status: F Test: RED CELL DISTRIBUTION WIDTH; Value: 12.3; Range: 11.5-14.5; Units: %; Status: F Test: PLATELET COUNT, AUTOMATED; Value: 239; Range: 150-450; Units: k/mm3; Status: F Test: NEUTROPHILS %; Value: 54.9; Range: 36.0-66.0; Units: %; Status: F Test: LYMPH %; Value: 34.6; Range: 24.0-44.0; Units: %; Status: F Test: MONO %; Value: 5.4; Range: 0.0-5.0; Abnormal: Above high normal; Units: %; Status: F Test: EOS %; Value: 1.7; Range: 0.0-3.0; Units: %; Status: F Test: BASO %; Value: 1.2; Range: 0.0-1.0; Abnormal: Above high normal; Units: %; Status: F Test: LARGE UNSTAINED CELL %; Value: 2.1; Range: 0.0-4.0; Units: %; Status: F Test: NEUTROPHILS #; Value: 3.6; Range: 1.8-7.7; Units: K/mm3; Status: F Test: LYMPH #; Value: 2.4; Range: 1.5-4.5; Units: K/mm3; Status: F Test: MONO #; Value: 0.4; Range: 0.0-0.8; Units: K/mm3; Status: F Test: EOS #; Value: 0.1; Range: 0.0-0.50; Units: K/mm3; Status: F Test: BASO #; Value: 0.1; Range: 0.0-0.2; Units: K/mm3; Status: F Test: LARGE UNSTAINED CELL #; Value: 0.1; Range: 0.0-0.4; Units: K/mm3; Status: F Lab Order: MED Profile; SPEC'M 10/26/16 12:50 Test: GLUCOSE, FASTING; Value: 90; Range: 70-105; Units: MG/DL; Status: F Test: BLOOD UREA NITROGEN; Value: 8; Range: 7-18; Units: MG/DL; Status: F Test: CREATININE FOR GFR; Value: 0.73; Range: 0.55-1.02; Units: MG/DL; Status: F Test: GLOMERULAR FILTRATION RATE; Value: > 60.0; Range: >60; Status: F Test: SODIUM LEVEL; Value: 142; Range: 136-145; Units: MEQ/L; Status: F Test: POTASSIUM SERUM; Value: 4.0; Range: 3.5-5.1; Units: MEQ/L; Status: F Test: CHLORIDE LEVEL; Value: 108; Range: 98-107; Abnormal: Above high normal; Units: MEQ/L; Status: F Test: CARBON DIOXIDE LEVEL; Value: 29; Range: 21-32; Units: MEQ/L; Status: F Test: ANION GAP; Value: 5; Range: 8-16; Abnormal: Below low normal; Units: MEQ/L; Status: F Test: CALCIUM LEVEL; Value: 9.1; Range: 8.5-10.1; Units: MG/DL; Status: F Test Note: ; Units are mL/min/1.73 m2 Chronic Kidney Disease Staging per NKF: Stage I & II GFR >=60 Normal to Mildly Decreased Stage III GFR 30-59 Moderately Decreased Stage IV GFR 15-29 Severely Decreased Stage V GFR <15 Very Little GFR Left ESRD GFR <15 on DRY WALL APPLICATOR Lab Order: Cardiac Marker Panel; SPEC10/26/16 12:50 Test: CPK CREATINE PHOSPHOKINASE; Value: 37; Range: 26-192; Units: U/L; Status: F Test: CK-MB VALUE MASS; Value: 1.0; Range: 0.0-3.6; Units: NG/ML; Status: F Test: MB/CK RELATIVE INDEX; Value: 2.70; Range: < OR =4; Status: F Test: TROPONIN I; Value: < 0.02; Range: < 0.10; Units: NG/ML; Status: F Test Note: ; DIAGNOSIS CRITERIA MMB ng/ml Relative Index (RI) NON-AMI < or = 5 N/A ZELAYA ZONE > 5 < or = 4 AMI > 5 > 4 Lab Order: Pt & Aptt; SPEC'10/26/16 12:50 Test: PROTHROMBIN TIME; Value: 14.5; Range: 12.3-14.5; Units: SECONDS; Status: F Test: INR; Value: 1.12; Status: F Test: PARTIAL THROMBOPLASTIN TIME; Value: 32.2; Range: 26.6-37.1; Units: SECONDS; Status: F Test Note: ; THERAPUTIC HUMAN INR VALUES INDICATIONS NORMAL RANGES PROPHYLAXIS/TREATMENT OF: VENOUS THROMBOSIS 2.0-3.0 PULMONARY EMBOLISM 2.0-3.0 PREVENTION OF SYSTEMIC EMBOLISM FROM: TISSUE HEART VALVES 2.0-3.0 ACUTE MYOCARDIAL INFARCTION 2.0-3.0 VALVULAR HEART DISEASE 2.0-3.0 ATRIAL FIBRILLATION 2.0-3.0 MECHANICAL VALVES(HIGH RISK) 2.5-3.5 RECURRENT MYOCARDIAL INFARCTION 2.5-3.5 Lab Order: HCG,Serum Qualitative; SPEC'M 10/26/16 12:50 Test: HCG, SERUM QUALITATIVE; Value: NEGATIVE; Range: NEGATIVE; Status: F Radiology Order: EKG-ADULT Test: EKG-ADULT REASON FOR EXAMINATION: Chest Pain; Stationary ECG Study; [facility] - ED; ; Test Date: 2016-10-26; Pat Name: HEBERT WEATHERS Department:; Room: -; Gender: 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; : 1985 Requested By: TAJ Leyva; Order Number: [id number] Reading MD: Neema Marcus; Measurements; Intervals [place]; Rate: 57 P: 64; AK: 147 QRS: 28; QRSD: 98 T: 8; QT: 427; QTc: 417; Interpretive Statements; SINUS BRADYCARDIA; POSSIBLE RIGHT VENTRICULAR CONDUCTION DELAY; NONSPECIFIC T-WAVE ABNORMALITY; NO PRIOR FOR COMPARISON; Electronically Signed On 10-27-2016 19:46:51 EST by Neema Marcus; Radiology Order: Chest, 2 View (pa\E\lat) Test: Chest, 2 View (pa\E\lat) REASON FOR EXAMINATION: Chest Pain; Clinical: Chest pain .; ; Comparison: None .; ; Technique: PA and lateral.; ; Findings:; The mediastinum and cardiac silhouette are normal. The lung moran are clear and; without acute consolidation, effusion, or pneumothorax. The skeletal structures; are intact and normal.; ; Impression:; 1. No acute cardiopulmonary process.; ; ; Signed by; Jayy Leblanc MD 10/26/2016 11:39 A; Radiology Order: CT Chest Angio R/O PE Test: CT Chest Angio R/O PE REASON FOR EXAMINATION: A-a grad 12;Chest Pain; Clinical: Acute chest pain.; ; Technique: Axial contrast enhanced images from the thoracic inlet to the upper; abdomen using 100 ml Isovue 370 intravenous contrast material with coronal and; sagittal re-formations.; ; Findings: Satisfactory enhancement of the pulmonary vasculature is achieved and; no filling defects are identified to suggest pulmonary embolus. Thoracic aorta; is normal caliber without aneurysm or dissection. Heart and pericardium are; normal. Bilateral lung moran are well aerated and clear without acute pulmonary; parenchymal consolidation or atelectasis. No nodule or mass lesion. No pleural; effusion/reaction. No pneumothorax. No adenopathy.; ; Impression:; No evidence for pulmonary embolus.; No acute pleuroparenchymal or mediastinal process.; ; ; Signed by; Jayy Leblanc MD 10/26/2016 02:17 P; Outcome: 14:17 CT Study completed. kc3 14:37 Discharge ordered by Provider. cs11 15:04 Discharge Assessment: Patient awake, alert and oriented x 3. No cognitive and/or kc3 functional deficits noted. Patient verbalized understanding of disposition instructions. patient administered narcotics - no. The following High Risk Discharge criteria are identified: None. Condition: stable. Discharge instructions given to patient, Instructed on discharge instructions, follow up and referral plans. medication usage, Demonstrated understanding of instructions, medications, Pt was receptive of discharge instructions/ teaching. Prescriptions given X 1. Property :Personal belongings accompany Pt. 15:05 Patient left the ED. kc3 Signatures: Dispatcher [employer] EDMS April Portillo, Reg Reg gb Sabrina Richmond, RN RN Briana Meraz, CHEESE COOKER CHEESE COOKER ct3 Ángel Best js11 Lizett Lima dem1 Alan Sidhu, DO cs11 Robson Richmond gr2 [employer] mm15 Deanna Ferrari, CHEESE COOKER CHEESE COOKER jlf Codi Castañeda,RN Tonie Schreiber,FARIHA RN kc3 Corrections: (The following items were deleted from the chart) 14:03 13:37 Pulse 68bpm; Monitor; Pulse Ox 98%; kc3 kc3 Chart Complete MTDD
== END 2016-10-26 15:05 | disposition home or self-care (01) ==
LOC: M ED 10:53
DX: S29.012A Strain of muscle and tendon of back wall of thorax, initial encounter (principal); X58.XXXA Exposure to other specified factors, initial encounter; Y92.89 Other specified places as the place of occurrence of the external cause; Y93.89 Activity, other specified; Y99.8 Other external cause status; Z87.891 Personal history of nicotine dependence
CPT/HCPCS: 36415; 36600; 71020; 71275; 80048; 82550; 82553; 82803; 84703; 85025; 85610; 85730; 93005; 93041; 96374; 99285; J1885; Q9967

== ENCOUNTER 2016-12-27 01:54 | Emergency (ER) | payer OTHER ==
[~2016-12-27] VITALS: Ht 170.2 cm; Wt 81.6 kg
[2016-12-27] MEDS ORDERED: BENT10CA PO (03:09)
[2016-12-27 06:40] LABS: BASO % 0.6 % (0.0-1.0); EOS # 0.2 K/mm3 (0.0-0.50); EOS % 2.7 % (0.0-3.0); LARGE UNSTAINED CELL # 0.2 K/mm3 (0.0-0.4); LARGE UNSTAINED CELL % 1.7 % (0.0-4.0); LYMPH # 3.3 K/mm3 (1.5-4.5); LYMPH % 36.2 % (24.0-44.0); MEAN CORPUSCULAR HEMOGLOBIN 32.3 pg (27.0-33.0); MEAN CORPUSCULAR HGB CONC 34.2 g/dl (32.0-36.5); MEAN CORPUSCULAR VOLUME 94.6 fl (80.0-96.0); MONO # 0.6 K/mm3 (0.0-0.8); MONO % 6.4 % (0.0-5.0); NEUTROPHILS # 4.6 K/mm3 (1.8-7.7); NEUTROPHILS % 52.4 % (36.0-66.0); PLATELET COUNT, AUTOMATED 281 k/mm3 (150-450); RED CELL DISTRIBUTION WIDTH 11.8 % (11.5-14.5); WHITE BLOOD COUNT 8.8 K/mm3 (4.0-10.0)
[2016-12-27 06:41] LABS: ALBUMIN 4.2 GM/DL (3.2-5.2); ALBUMIN/GLOBULIN RATIO 1.08 (1.00-1.93); ALKALINE PHOSPHATASE 103 U/L (45-117); ALT/SGPT 18 U/L (12-78); ANION GAP 8 MEQ/L (8-16); AST/SGOT 13 U/L (15-37); BILIRUBIN,DIRECT < 0.1 MG/DL (0.0-0.2); BILIRUBIN,TOTAL 0.3 MG/DL (0.2-1.0); BLOOD UREA NITROGEN 11 MG/DL (7-18); CALCIUM LEVEL 8.5 MG/DL (8.5-10.1); CARBON DIOXIDE LEVEL 26 MEQ/L (21-32); CHLORIDE LEVEL 106 MEQ/L (98-107); CREATININE FOR GFR 0.72 MG/DL (0.55-1.02); GLOMERULAR FILTRATION RATE > 60.0 (>60); GLUCOSE, FASTING 95 MG/DL (70-105); POTASSIUM SERUM 3.8 MEQ/L (3.5-5.1); SODIUM LEVEL 140 MEQ/L (136-145); TOTAL PROTEIN 8.1 GM/DL (6.4-8.2)
[2016-12-27 06:45] LABS: CONTROL LINE HCG INT CTR LINE PRESENT
[2016-12-27] MEDS ORDERED: ONDANSETRON 4MG/2ML VIAL (J2405) IV ONE (07:15)
[2016-12-27] MEDS ORDERED: MORPHINE 4 MG/ML 1ML SYRINGE IV PRN (07:15)
[2016-12-27] MEDS ORDERED: ISOVUE-370 76% 100ML VIAL (Q9967) As Ordered ONE (08:41)
[2016-12-27] MEDS ORDERED: MORPHINE 4 MG/ML 1ML SYRINGE IV ONE (09:00)
[2016-12-27] MEDS ORDERED: PROT1TAB2 PO (09:41)
[2016-12-27 09:54] VITALS: BP 109/64
--- NOTE | 2016-12-27 14:20 | REP ---
REASON: Epigastric pain. Comparison CT abdomen and pelvis none. Contrast utilized 100 mL Isovue 370. The lung bases are clear. The liver, gallbladder, spleen, pancreas, adrenal glands, and kidneys are within normal limits. The abdominal aorta and para-aortic regions are within normal limits. The bowel loops and their mesenteries are within normal limits. There is no free fluid or free air. There is no intra-abdominal mass or adenopathy. CT PELVIS: The bowel loops and their mesenteries are within normal limits. The appendix is well visualized and is unremarkable. There is no free fluid or free air. There is no mass or adenopathy. Bone window technique through the examination shows the osseous structures to be within normal limits for the patient's age. IMPRESSION: CT findings are within normal limits. Signed by Lan Matamoros DO 12/27/2016 03:17 P
--- NOTE | 2016-12-29 10:43 | REP ---
Right upper quadrant sonography: Repeat dictation. History: Right upper quadrant pain. Evaluate gallbladder. Comparison study: No comparison study. Findings: Scanning through the right upper quadrant of the abdomen demonstrates a normal sized, thin-walled gallbladder without evidence of stone or polyp. Common bile duct is normal measuring 0.5 cm in greatest diameter. No focal liver lesion is seen. Liver size is normal. No pancreatic abnormality is observed. No right renal abnormality is seen. There is no evidence of ascites. The right kidney measures 10.5 x 5.8 x 4.0 cm. Impression: Negative right upper quadrant sonography. Signed by Tao Washington MD 12/29/2016 10:35 A
== END 2016-12-27 09:59 | disposition home or self-care (01) ==
LOC: M ED 04:12
DX: K52.9 Noninfective gastroenteritis and colitis, unspecified (principal); N91.2 Amenorrhea, unspecified
CPT/HCPCS: 74177; 76705; 80048; 80076; 81001; 83690; 84703; 85025; 87040; 87086; 93041; 96374; 96375; 96376; 99285; J2405; Q9967

== ENCOUNTER → 2017-03-04 | Outpatient (CLI) | payer OTHER ==
[~2017-03-04] MED LIST: BENT10CA PO; GASTROGRAFIN SOLUTION 30ML (Q9963) As Ordered ONE; ISOVUE-370 76% 100ML VIAL (Q9967) As Ordered ONE; PROT1TAB2 PO
--- NOTE | 2017-03-04 16:38 | REP ---
Clinical: Abdominal pain. Technique: Axial contrast enhanced images from the lung bases to the pubic symphysis using oral and 100 ml Isovue 370 intravenous contrast material with precontrast images of the abdomen as well as coronal and sagittal re-formations. Comparison: 12/27/2016. Findings: Lung bases clear. Visualized heart and pericardium normal. Liver, spleen, pancreas, gallbladder, bilateral adrenal glands and kidneys are normal. The enteric system is without obstruction or acute inflammatory process. Normal terminal ileum and appendix identified in the right lower quadrant. Pelvis demonstrates normal bladder and age-appropriate uterus/adnexa. No free air. No free fluid. No adenopathy. Vasculature appears normal. Musculoskeletal structures are intact. Impression: Normal contrast enhanced CT of the abdomen and pelvis. Signed by Jayy Leblanc MD 03/04/2017 04:29 P
== END ==
LOC: M RAD 13:48
PROVIDERS: ATTEND Internal Medicine
DX: R10.9 Unspecified abdominal pain (principal)
CPT/HCPCS: 74178; Q9963; Q9967

== ENCOUNTER → 2017-04-21 | Outpatient (CLI) | payer OTHER ==
[~2017-04-21] VITALS: Ht 170.2 cm; Wt 81.2 kg
[~2017-04-21] MED LIST changes: -GASTROGRAFIN SOLUTION 30ML (Q9963) As Ordered ONE; -ISOVUE-370 76% 100ML VIAL (Q9967) As Ordered ONE; +LIDOCAINE 2% INJ 100 MG/5 ML SDV (FOR ANES.) As Ordered ONE; +MIRA3350 PO; +NS 1,000 ML IV ONE; +OMEP20CA3 PO; +PROPOFOL 200 MG/20 ML VIAL As Ordered ONE; +ePHEDrine SULFATE 25 MG/5 ML(5MG/ML) SYRINGE As Ordered ONE
--- NOTE | 2017-04-21 12:38 | ROOR ---
Patient Name: Susanne Weathers Procedure Date: 04/21/2017 12:25 PM Date of : 1985 Age: 31 Room: [facility] Gender: Female Note Status: Finalized Procedure: Upper GI endoscopy Indications: Heartburn Providers: Oliverio Ayala MD Referring MD: AMIRAH MACARIO MD Requesting Provider: Medicines: Monitored Anesthesia Care Complications: No immediate complications. Procedure: Pre-Anesthesia Assessment: - The heart rate, respiratory rate, oxygen saturations, blood pressure, adequacy of pulmonary ventilation, and response to care were monitored throughout the procedure. The Endoscope was introduced through the mouth, and advanced to the second part of duodenum. The upper GI endoscopy was accomplished without difficulty. The patient tolerated the procedure well. Findings: The Z-line was regular and was found 40 cm from the incisors. No other significant abnormalities were identified in a careful examination of the stomach. The exam of the duodenum was otherwise normal. Impression: - Z-line regular, 40 cm from the incisors. - No specimens collected. - The examination was otherwise normal. Recommendation: - Patient has a contact number available for emergencies. The signs and symptoms of potential delayed complications were discussed with the patient. Return to normal activities tomorrow. Written discharge instructions were provided to the patient. - High fiber diet. - Discharge patient to home. - Continue present medications. - Return to referring physician. - The findings and recommendations were discussed with the patient's family. Oliverio Ayala MD Oliverio Ayala MD 04/21/2017 12:37:39 PM This report has been signed electronically. Number of Addenda: 0 Note Initiated On: 04/21/2017 12:25 PM Estimated Blood Loss: Estimated blood loss: none.
--- NOTE | 2017-04-21 12:56 | ROOR ---
Patient Name: Susanne Weathers Procedure Date: 04/21/2017 12:25 PM Date of : 1985 Age: 31 Room: [facility] Gender: Female Note Status: Finalized Procedure: Total Colonoscopy to Cecum Indications: Abdominal pain in the left lower quadrant, Change in bowel habits Providers: Oliverio Ayala MD Referring MD: AMIRAH MACARIO MD Requesting Provider: Medicines: Monitored Anesthesia Care Complications: No immediate complications. Procedure: Pre-Anesthesia Assessment: - The heart rate, respiratory rate, oxygen saturations, blood pressure, adequacy of pulmonary ventilation, and response to care were monitored throughout the procedure. The Colonoscope was introduced through the anus and advanced to the cecum, identified by appendiceal orifice and ileocecal valve. The colonoscopy was performed without difficulty. The patient tolerated the procedure well. The quality of the bowel preparation was excellent. Findings: The perianal and digital rectal examinations were normal. Non-bleeding internal hemorrhoids were found during retroflexion. The hemorrhoids were small and Grade I (internal hemorrhoids that do not prolapse). A small polyp was found at 20 cm proximal to the anus. The polyp was sessile. The polyp was removed with a cold snare. Resection and retrieval were complete. The exam was otherwise without abnormality on direct and retroflexion views. Impression: - Non-bleeding internal hemorrhoids. - One small polyp at 20 cm proximal to the anus, removed with a cold snare. Resected and retrieved. - The examination was otherwise normal on direct and retroflexion views. - The exam was otherwise normal to the cecum. Recommendation: - Patient has a contact number available for emergencies. The signs and symptoms of potential delayed complications were discussed with the patient. Return to normal activities tomorrow. Written discharge instructions were provided to the patient. - High fiber diet. - Discharge patient to home. - Continue present medications. - Await pathology results. - Telephone GI clinic for pathology results in 1 week. - Repeat colonoscopy for surveillance based on pathology results. - Return to referring physician. - The findings and recommendations were discussed with the patient's family. Oliverio Ayala MD Oliverio Ayala MD 04/21/2017 12:56:43 PM This report has been signed electronically. Number of Addenda: 0 Note Initiated On: 04/21/2017 12:25 PM Estimated Blood Loss: Estimated blood loss: none.
[2017-04-21 13:19] VITALS: BP 141/68
== END | disposition home or self-care (01) ==
LOC: M OPP 11:32
PROVIDERS: ATTEND Internal Medicine Gastroenterology
DX: R10.32 Left lower quadrant pain (principal); R19.4 Change in bowel habit; D12.5 Benign neoplasm of sigmoid colon; K64.0 First degree hemorrhoids; R12 Heartburn; K21.9 Gastro-esophageal reflux disease without esophagitis; F41.9 Anxiety disorder, unspecified; F32.9 Major depressive disorder, single episode, unspecified; R06.83 Snoring; Z79.899 Other long term (current) drug therapy; Z87.891 Personal history of nicotine dependence; Z80.0 Family history of malignant neoplasm of digestive organs